=== PATIENT | male | born 1990 | race American Indian/Alaskan Native ===

== ENCOUNTER 2020-03-28 18:47 | Emergency (ER) | payer SELFPAY ==
[2020-03-28] MEDS ORDERED: SODIUM CHLORIDE 0.9% 1000 ML 1,000 ML IV ONE (20:44)
[2020-03-28] MEDS ORDERED: NALOXONE 0.4 MG/1 ML INJ IV PRN (20:44)
--- NOTE | 2020-03-28 20:45 | Emergency Department Report ---
History of Present Illness - General Chief Complaint: Overdose Stated Complaint: OD/ RESP ARREST Time Seen by Provider: 03/28/20 20:40 Source: patient, EMS Mode of arrival: Wheelchair Limitations: No Limitations - History of Present Illness Initial Comments: Patient is a 29-year-old male that presents emergency room with a Percocet overdose. Patient states that he took to 10 mg Percocets for the pain in his mouth. Patient states he was having tooth pain and he decided to take some Percocet. Patient states he purchased the Percocet off the street. Patient states that after he took them he started to feel tired and he sat in his girlfriend's car and fell asleep. Patient states that his girlfriend then called EMS. Patient states EMS gave him a medication and it woke him up. Patient at this time is alert and oriented x4. Patient answering questions appropriately. Patient states he does not feel tired. Patient denies any pain. Patient denies any physical symptoms. Patient denies suicidal and homicidal ideation. Patient denies depression anxiety. Patient denies hallucinations. Patient was brought in by EMS. Patient was given 1 mg of Narcan x2 in route. Patient responded well to the Narcan and became completely arousable. Patient denies recent travel. Patient denies recent international travel. Patient denies exposure to the novel coronavirus. Patient denies sick contacts. Patient denies fever and chills. Patient denies cough. Patient denies diarrhea. Patient denies coming in contact with anybody with symptoms of the novel coronavirus. Complaint: accidental overdose -: Sudden Intent: other (Wanted to treat his pain) How Overdose Was Discovered: called family/friend Context: Accidental Overdose: medication error Treatments Prior to Arrival: narcan, IV fluids - Related Data Allergies Allergy/AdvReac Type Severity Reaction Status Date / Time No Known Allergies Allergy Unverified 03/28/20 20:36 ED Review of Systems ROS: Stated complaint: OD/ RESP ARREST Other details as noted in HPI Constitutional: denies: chills, fever Eyes: denies: eye pain, eye discharge, vision change ENT: denies: ear pain, throat pain Respiratory: denies: cough, shortness of breath, wheezing Cardiovascular: denies: chest pain, palpitations Endocrine: no symptoms reported Gastrointestinal: denies: abdominal pain, nausea, diarrhea Genitourinary: denies: urgency, dysuria Musculoskeletal: denies: back pain, joint swelling, arthralgia Skin: denies: rash, lesions Neurological: denies: headache, weakness, paresthesias Psychiatric: denies: anxiety, depression Hematological/Lymphatic: denies: easy bleeding, easy bruising ED Past Medical Hx - Past Medical History Previous Medical History?: No - Surgical History Past Surgical History?: No - Family History Family history: no significant - Social History Smoking Status: Current Every Day Smoker Substance Use Type: Alcohol ED Physical Exam - General Limitations: No Limitations General appearance: alert, in no apparent distress - Head Head exam: Present: atraumatic, normocephalic - Eye Eye exam: Present: normal appearance, PERRL Pupils: Present: normal accommodation - ENT ENT exam: Present: mucous membranes moist - Neck Neck exam: Present: normal inspection - Respiratory Respiratory exam: Present: normal lung sounds bilaterally. Absent: respiratory distress - Cardiovascular Cardiovascular Exam: Present: regular rate, normal rhythm. Absent: systolic murmur, diastolic murmur, rubs, gallop - GI/Abdominal GI/Abdominal exam: Present: soft, normal bowel sounds - Rectal Rectal exam: Present: deferred - Extremities Exam Extremities exam: Present: normal inspection - Back Exam Back exam: Present: normal inspection - Neurological Exam Neurological exam: Present: alert, oriented X3 - Psychiatric Psychiatric exam: Present: normal affect, normal mood - Skin Skin exam: Present: warm, dry, intact, normal color. Absent: rash ED Course Vital Signs 03/28/20 19:44 Temperature 98.7 F Pulse Rate 84 Respiratory 17 Rate Blood Pressure 133/87 [Right] O2 Sat by Pulse 97 Oximetry - Reevaluation(s) Reevaluation #1: Patient is awake alert and oriented x4. Patient states he is ready to go. I discussed all results and clinical findings with patient. I discussed plan of care with patient. Patient agrees with plan of care. Patient is stable for discharge. Patient will be discharged home. Patient given discharge instructions. Patient voiced understanding of discharge instructions. 03/28/20 21:54 ED Medical Decision Making - Lab Data Result diagrams: 03/28/20 20:54 03/28/20 20:54 - EKG Data -: EKG Interpreted by Me EKG shows normal: sinus rhythm, axis, intervals, QRS complexes, ST-T waves Rate: normal - Medical Decision Making Patient is a 29-year-old male that was found in his private vehicle asleep by EMS. Patient's girlfriend called EMS because he was heavily somnolent and unresponsive. Patient was given Narcan by EMS and the patient responded well and became responsive. Patient upon initial evaluation was alert and oriented x4. Patient states he took Percocet for his dental pain. Patient states he brought the Percocet off the street. Patient did not have a prescription. Patient denies suicidal/homicidal ideations. Patient was monitored in the ER for many hours. Patient stable for discharge. Patient's labs were essentially unremarkable. Patient tolerated p.o. intake. Patient ambulatory in the ER. Patient awake alert and oriented the entire time in the ER. - Differential Diagnosis Accidental overdose. Altered mental status Critical Care Time: Yes Critical care time in (mins) excluding proc time.: 35 Critical care attestation.: If time is entered above; I have spent that time in minutes in the direct care of this critically ill patient, excluding procedure time. Critical Care Time: 35 minutes ED Disposition Clinical Impression: Accidental overdose Qualifiers: Encounter type: initial encounter Qualified Code(s): T50.901A - Poisoning by unspecified drugs, medicaments and biological substances, accidental (uninte ntional), initial encounter Opiate overdose Qualifiers: Encounter type: initial encounter Injury intent: accidental or unintentional Qualified Code(s): T40.601A - Poisoning by unspecified narcotics, accidental (unintentional), initial encounter Altered mental status Qualifiers: Altered mental status type: unspecified Qualified Code(s): R41.82 - Altered mental status, unspecified Disposition: DC-01 TO HOME OR SELFCARE Is pt being admited?: No Does the pt Need Aspirin: No Condition: Stable Instructions: Oxycodone/Acetaminophen (By mouth), Narcotic Abuse (ED) Additional Instructions: Patient to follow-up with primary care in 2 to 3 days. Patient to rest. Indira ent to increase water. Patient to avoid opiate pain medications and other drugs. patient to avoid alcohol.. Patient to take Tylenol or ibuprofen as needed for pain. Patient to take meds as directed. Patient to return to the ER if condition worsens, changes or new symptoms arise. Referrals: DIDIER TA MD [Staff Physician] - 2-3 Days Time of Disposition: :57
[2020-03-28 21:15] LABS: Hematocrit 44.1 % (35.5-45.6); Hemoglobin 15.1 gm/dl (11.8-15.2); Mean Corpuscular HGB Conc 34 % (32-34); Mean Corpuscular Volume 91 fl (84-94); Platelet Count 206 K/mm3 (140-440); Red Blood Count 4.86 M/mm3 (3.65-5.03); Red Cell Distribution Width 13.2 % (13.2-15.2)
[2020-03-28 21:30] LABS: Alanine Aminotransferase 17 units/L (7-56); Albumin 4.5 g/dL (3.9-5); BUN/Creatinine Ratio 15; Blood Urea Nitrogen 12 mg/dL (9-20); Calcium 9.2 mg/dL (8.4-10.2); Hemolysis Index 28
[2020-03-28 22:03] VITALS: BP 109/82
[2020-03-28 22:08] LABS: Amphetamine Screen,Urine PRESUMPTIVE NEGATIVE; Benzodiazepines Screen,Urine PRESUMPTIVE POSITIVE; Cannabinoid Screen,Urine PRESUMPTIVE POSITIVE; Cocaine Screen,Urine PRESUMPTIVE NEGATIVE; Methadone Screen,Urine PRESUMPTIVE NEGATIVE; Opiate Screen,Urine PRESUMPTIVE NEGATIVE
[2020-03-28 22:11] LABS: Bilirubin,Urine NEG (Negative); Blood,Urine NEG (Negative); Color,Urine Yellow (Yellow); Mucus,Urine 3+ /HPF; Protein,Urine <15 mg/dL mg/dL (Negative); Urobilinogen,Urine < 2.0 mg/dL (<2.0); WBC,Urine < 1.0 /HPF (0.0-6.0)
[2020-03-28 22:16] LABS: Basophils % (Manual) 0 % (0.0-1.8); RBC Morphology Normal; Total Cells Counted 100
== END 2020-03-28 22:21 | disposition home or self-care (01) ==
LOC: ED 18:47
DX: T50.901A Poisoning by unspecified drugs, medicaments and biological substances, accidental (unintentional), initial encounter (principal); T40.601A Poisoning by unspecified narcotics, accidental (unintentional), initial encounter; R41.82 Altered mental status, unspecified; F17.200 Nicotine dependence, unspecified, uncomplicated; X58.XXXA Exposure to other specified factors, initial encounter; Y93.89 Activity, other specified; Y92.89 Other specified places as the place of occurrence of the external cause; Y99.8 Other external cause status
CPT/HCPCS: 36415; 80053; 80307; 81001; 85007; 85025; 93005; 96360; 99284; J7030; 80320; G0480